=== PATIENT | male | born 1995 | race Caucasian/White ===

== ENCOUNTER 2020-07-04 12:28 | Emergency (ER) | payer MEDICAID ==
[~2020-07-04] VITALS: Ht 188 cm; Wt 77.3 kg
[~2020-07-04 12:28] MED LIST: DIVA-74 PO; OLAN10TA19 PO
[2020-07-04 12:56] VITALS: BP 132/87
== END 2020-07-04 14:15 | disposition left against medical advice (07) ==
LOC: ER 12:28
DX: T65.91XA Toxic effect of unspecified substance, accidental (unintentional), initial encounter (principal); Z53.21 Procedure and treatment not carried out due to patient leaving prior to being seen by health care provider; Y92.89 Other specified places as the place of occurrence of the external cause